=== PATIENT | female | born 1965 | race Caucasian/White ===

== ENCOUNTER 2018-08-25 07:09 | Emergency (ER) | payer MEDICARE, MEDICAID ==
[~2018-08-25] VITALS: Ht 172.7 cm; Wt 62.6 kg
[2018-08-25] MEDS ORDERED: DIHYDROERGOTAMINE MESYLATE IVP ONE (07:45)
[2018-08-25] MEDS ORDERED: IV NORMAL SALINE 1000 ML BAG IV ONE (07:45)
[2018-08-25] MEDS ORDERED: ONDANSETRON IV *ER 4 MG/2 ML VIAL IV ONE (07:45)
[2018-08-25] MEDS ORDERED: ONDANSETRON 4 MG/2 ML VIAL ONE (07:49)
[2018-08-25] MEDS ORDERED: DIHYDROERGOTAMINE MESYLATE ONE (07:49)
--- NOTE | 2018-08-25 08:08 | NUR ---
PATIENT WAS SEEN BY FOR C/O MIGRAINE. PATIENT IS AWAKE, ALERT, ORIENTED X4. STATES HAS HAD MIGRAINE SINCE 1998. IV PLACED, MEDICATION GIVEN ORDERED. PLACED ON CONTINUOUS LEATHER COLORER.
--- NOTE | 2018-08-25 08:27 | NUR ---
PATIENT STATES HEAD PAIN AND NAUSEA HAVE DIMINISHED SIGNIFICANTLY.
--- NOTE | 2018-08-25 09:21 | NUR ---
IV removed. Catheter intact and site benign. Pressure and 4x4 gauze applied to site. No bleeding noted.
--- NOTE | 2018-08-25 09:22 | NUR ---
DC AND FOLLOW UP INSTRUCTIONS GIVEN AND EXPLAINED TO PATIENT WHO STATES SHE UNDERSTANDS ALL INSTRUCTIONS. PATIENT TO TAKE A TAXI LIKE SERVICE HOME, NO DRIVING.
[2018-08-25 09:25] VITALS: BP 110/78
== END 2018-08-25 09:26 | disposition home or self-care (01) ==
LOC: ER 07:21
DX: S70.01XA Contusion of right hip, initial encounter (principal); G43.909 Migraine, unspecified, not intractable, without status migrainosus; J45.909 Unspecified asthma, uncomplicated; Z91.040 Latex allergy status; Z88.8 Allergy status to other drugs, medicaments and biological substances; Z91.048 Other nonmedicinal substance allergy status; W07.XXXA Fall from chair, initial encounter; Y93.89 Activity, other specified; Y92.89 Other specified places as the place of occurrence of the external cause; Y99.8 Other external cause status
CPT/HCPCS: 73502; 96374; 96375; 99283; J1110; J2405; A4663; J7030

== ENCOUNTER 2019-01-14 16:07 | Emergency (ER) | payer MEDICARE, MEDICAID ==
[~2019-01-14] VITALS: Ht 172.7 cm; Wt 63.5 kg
--- NOTE | 2019-01-14 16:31 | NUR ---
PT IS IN ROOM #2B. DR TERAN EVALUATED THE PT.
[2019-01-14] MEDS ORDERED: KETOROLAC TROMETHAMINE 30 MG INJ IM ONE (17:30)
[2019-01-14] MEDS ORDERED: KETOROLAC TROMETHAMINE 30 MG INJ ONE (17:38)
--- NOTE | 2019-01-14 17:56 | NUR ---
PT WAS D/C'd TO HOME. D/C INSTRUCTIONS GIVEN TO THE PT.
[2019-01-14 17:57] VITALS: BP 132/68
== END 2019-01-14 17:58 | disposition home or self-care (01) ==
LOC: ER 16:07
DX: S00.83XA Contusion of other part of head, initial encounter (principal); S13.4XXA Sprain of ligaments of cervical spine, initial encounter; J45.909 Unspecified asthma, uncomplicated; F32.9 Major depressive disorder, single episode, unspecified; F41.9 Anxiety disorder, unspecified; Z88.8 Allergy status to other drugs, medicaments and biological substances; Z91.048 Other nonmedicinal substance allergy status; Z91.040 Latex allergy status; W01.198A Fall on same level from slipping, tripping and stumbling with subsequent striking against other object, initial encounter; Y93.89 Activity, other specified; Y92.89 Other specified places as the place of occurrence of the external cause; Y99.8 Other external cause status
CPT/HCPCS: 70450; 70486; 72125; 96372; 99284; J1885; A4663

== ENCOUNTER 2019-03-14 11:30 | Emergency (ER) | payer MEDICARE, MEDICAID ==
[~2019-03-14] VITALS: Ht 170.2 cm; Wt 65.8 kg
--- NOTE | 2019-03-14 11:49 | NUR ---
Dr Plummer at the bedside for MSE.
[2019-03-14] MEDS ORDERED: ONDANSETRON 4 MG/2 ML VIAL ONE (11:57)
[2019-03-14] MEDS ORDERED: MORPHINE SULFATE 4 MG/1 ML DISP.SYRIN ONE ×2 (11:57→12:36)
[2019-03-14] MEDS ORDERED: IV NORMAL SALINE 1000 ML BAG IV ONE (12:00)
[2019-03-14] MEDS ORDERED: ONDANSETRON 4 MG/2 ML VIAL IV ONE (12:00)
[2019-03-14] MEDS ORDERED: MORPHINE SULFATE 2 MG/1 ML DISP.SYRIN IV ONE (12:00)
[2019-03-14 12:01] LABS: BASOPHILS # (AUTO) 0.1 K/uL (0.0-8.0); BASOPHILS % (AUTO) 0.9 % (0.0-2.0); EOSINOPHILS # (AUTO) 0.1 K/uL (0.0-0.7); EOSINOPHILS % (AUTO) 1.5 % (0.0-7.0); HEMATOCRIT 42.5 % (31.2-41.9); HEMOGLOBIN 14.2 g/dL (10.9-14.3); LYMPHOCYTES # (AUTO) 1.6 K/uL (20.0-40.0); LYMPHOCYTES % (AUTO) 22.3 % (20.5-51.5); MEAN CORPUSCULAR HEMOGLOBIN 33.3 uug (24.7-32.8); MEAN CORPUSCULAR HGB CONC 33 g/dL (32.3-35.6); MEAN CORPUSCULAR VOLUME 99.8 fL (75.5-95.3); MONOCYTES # (AUTO) 0.6 K/uL (2.0-10.0); MONOCYTES % (AUTO) 8.6 % (0.0-11.0); NEUTROPHILS # (AUTO) 4.8 K/uL (1.8-8.9); NEUTROPHILS % (AUTO) 66.7 % (38.5-71.5); PLATELET COUNT (AUTO) 262 K/uL (179-408); RED BLOOD CELL COUNT(AUTO) 4.26 MIL/uL (3.63-4.92); WHITE BLOOD COUNT (AUTO) 7.2 K/uL (3.8-11.8)
[2019-03-14 12:07] LABS: *BILIRUBIN,URIN NEGATIVE (NEGATIVE); *BLOOD, URINE 1+ (NEGATIVE); *CLARITY,URINE CLEAR (CLEAR); *COLOR,URINE YELLOW (YELLOW); *KETONES,URINE NEGATIVE (NEGATIVE); *UROBILINOGEN,URINE 0.2 E.U./dl (NORMAL); LEUKOCYTE ESTERASE ,URINE NEGATIVE (NEGATIVE); NITRITE, URINE NEGATIVE (NEGATIVE); PH,URINE 7.5 (5.0-8.0); UGLUCOSE NEGATIVE (NEGATIVE)
[2019-03-14 12:09] LABS: CREATININE 0.7 mg/dL (0.6-1.3); POTASSIUM 3.8 mmol/L (3.5-5.1)
[2019-03-14 12:13] LABS: BACTERIA,URINE FEW /HPF (NONE SEEN); RBC,URINE 0-3 /HPF (0-3); SQUAMOUS EPITHELIAL CELL,UR FEW /HPF (NONE SEEN); WBC,URINE 0-3 /HPF (0-3)
[2019-03-14 12:15] LABS: BILIRUBIN,DIRECT 0.1 mg/dL (0.0-0.2); BILIRUBIN,TOTAL 0.5 mg/dL (0.2-1.0); TOTAL PROTEIN, SERUM 7.6 g/dL (6.4-8.2)
[2019-03-14] MEDS ORDERED: MORPHINE SULFATE 4 MG/1 ML DISP.SYRIN IV ONE (12:30)
[2019-03-14 13:52] VITALS: BP 103/63
--- NOTE | 2019-03-14 13:52 | NUR ---
IV removed. Catheter intact and site benign. Pressure and 4x4 gauze applied to site. No bleeding noted.
--- NOTE | 2019-03-14 13:54 | NUR ---
Patient discharged to home in stable conditon. Written and verbal after care instructions given. Patient verbalizes understanding of instructions.
== END 2019-03-14 13:54 | disposition home or self-care (01) ==
LOC: ER 11:30
DX: K52.9 Noninfective gastroenteritis and colitis, unspecified (principal); J45.909 Unspecified asthma, uncomplicated; F32.9 Major depressive disorder, single episode, unspecified; F41.9 Anxiety disorder, unspecified; Z90.49 Acquired absence of other specified parts of digestive tract; Z79.899 Other long term (current) drug therapy; Z91.040 Latex allergy status; Z91.048 Other nonmedicinal substance allergy status
CPT/HCPCS: 36415; 74176; 76705; 80048; 80076; 81000; 81001; 83690; 84702; 85025; 93005; 96361; 96374; 96375; 96376; 99284; J2270 ×2; J2405; A4663; J7030

== ENCOUNTER 2019-03-20 15:33 | Emergency (ER) | payer MEDICARE, MEDICAID ==
[~2019-03-20] VITALS: Ht 170.2 cm; Wt 61.7 kg
[2019-03-20] MEDS ORDERED: MELA1TAB9 PO (15:59)
[2019-03-20] MEDS ORDERED: FLUT1DIS28 INH (15:59)
[2019-03-20] MEDS ORDERED: TUMS (15:59)
[2019-03-20] MEDS ORDERED: ACET-2154 PO (15:59)
[2019-03-20] MEDS ORDERED: LAMO200T10 PO (15:59)
[2019-03-20] MEDS ORDERED: SUMA100T16 PO (15:59)
[2019-03-20] MEDS ORDERED: LORA5SOL7 PO (15:59)
[2019-03-20] MEDS ORDERED: RIZA10TA27 PO (15:59)
[2019-03-20] MEDS ORDERED: ESOM20CA PO (15:59)
[2019-03-20] MEDS ORDERED: ONDA4TAB11 PO (15:59)
[2019-03-20] MEDS ORDERED: KETOROLAC TROMETHAMINE 60 MG INJ IM ONE ×2 (17:20→17:30)
[2019-03-20] MEDS ORDERED: HYDROCODONE/APAP 10-325 MG TABLET PO ONE (17:45)
[2019-03-20] MEDS ORDERED: HYDROCODONE/APAP 10-325 MG TABLET ONE (17:47)
--- NOTE | 2019-03-20 17:53 | NUR ---
Patient discharged to home in stable conditon. Written and verbal after care instructions given. Patient verbalizes understanding of instructions.
== END 2019-03-20 17:55 | disposition home or self-care (01) ==
LOC: ER 15:33
DX: K52.9 Noninfective gastroenteritis and colitis, unspecified (principal); J45.909 Unspecified asthma, uncomplicated; G43.909 Migraine, unspecified, not intractable, without status migrainosus; F32.9 Major depressive disorder, single episode, unspecified; F41.9 Anxiety disorder, unspecified; Z88.8 Allergy status to other drugs, medicaments and biological substances; Z91.048 Other nonmedicinal substance allergy status; Z79.899 Other long term (current) drug therapy
CPT/HCPCS: 74176; 96372; 99284; J1885; A4663

== ENCOUNTER 2020-10-20 14:04 | Emergency (ER) | payer MEDICARE, OTHER ==
[~2020-10-20] VITALS: Ht 170.2 cm; Wt 74.8 kg
[~2020-10-20 14:04] MED LIST: ACET-2154 PO; ESOM20CA PO; FLUT1DIS28 INH; LAMO200T10 PO; LORA5SOL7 PO; MELA1TAB47 PO; ONDA4TAB11 PO; RIZA10TA27 PO; SUMA100T16 PO; TUMS
[2020-10-20] MEDS ORDERED: HYDR-3980 PO (15:06)
[2020-10-20] MEDS ORDERED: KETOROLAC TROMETHAMINE 30 MG INJ IM ONE (15:30)
[2020-10-20] MEDS ORDERED: KETOROLAC TROMETHAMINE 30 MG INJ ONE (15:31)
== END 2020-10-20 15:34 | disposition home or self-care (01) ==
LOC: ER 14:04
DX: M50.31 Other cervical disc degeneration, high cervical region (principal); M48.02 Spinal stenosis, cervical region; Z98.890 Other specified postprocedural states; R03.0 Elevated blood-pressure reading, without diagnosis of hypertension; J45.909 Unspecified asthma, uncomplicated; F31.9 Bipolar disorder, unspecified; Z79.899 Other long term (current) drug therapy; Z87.19 Personal history of other diseases of the digestive system; Z88.9 Allergy status to unspecified drugs, medicaments and biological substances; Z91.041 Radiographic dye allergy status; Z91.040 Latex allergy status
CPT/HCPCS: 72125; 96372; 99284; J1885; A4663